=== PATIENT | male | born 1985 | race Caucasian/White ===

== ENCOUNTER 2021-10-10 12:30 | Emergency (ER) | payer OTHER, SELFPAY ==
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
--- NOTE | ~2021-10-10 | XR_ITS ---
[id number] 10/10/2021 13:23 Indication: Neck pain Procedure: 3 views cervical spine Comparison: No prior studies for comparison. Findings: There is straightening of cervical lordosis. Vertebral body and disc heights are preserved. No fracture, subluxation or dislocation. Lung apices are normal. Odontoid process within normal limi ts. No prevertebral soft tissue swelling. Impression: 1: No significant abnormality of the cervical spine. Reviewed, dictated and finalized at location A. Impression: 1: No significant abnormality of the cervical spine.
[2021-10-10 12:55] VITALS: BP 154/92; PULSE 92; RESP 18; TEMP 36.9; O2SAT 99
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
== END 2021-10-10 14:04 | disposition home or self-care (01) ==
PROVIDERS: Emergency Provider Registered Nurse
DX: M54.2 Cervicalgia (principal); M25.551 Pain in right hip; M25.511 Pain in right shoulder
CPT/HCPCS: 72040; 72170; 99204; G0463